=== PATIENT | female | born 1985 | race Two or more races ===

== ENCOUNTER 2021-04-09 13:18 | Emergency (ER) | payer OTHER ==
[2021-04-09 13:29] VITALS: BP 128/73; PULSE 65; TEMP 98.6; BMI 21.9
== END 2021-04-09 14:17 | disposition home or self-care (01) ==
LOC: FER 13:18
PROC: 0HQGXZZ Repair Left Hand Skin, External Approach (ICD-10-PCS; principal; 2021-04-09)
DX: S61.211A Laceration without foreign body of left index finger without damage to nail, initial encounter (principal); W26.0XXA Contact with knife, initial encounter
CPT/HCPCS: 12001-25; 99282-25